=== PATIENT | female | born 1990 | race Caucasian/White ===

== ENCOUNTER 2017-09-12 09:46 | Emergency (ER) | payer OTHER ==
[~2017-09-12 09:46] MED LIST: ALBUTEROL INH; CLONAZEPAM 0.50.5 M1 PO; FLEXERIL PO; KLONOPIN0.5 MG PO; METHADONE HCL 110 M1 PO; METHADOSE10 MG PO; ULTRAM 50MG TAB50 MG PO; WELLBUTRIN SR150 MG PO
== END 2017-09-12 10:28 ==
LOC: M.ERS 09:46
DX: Z02.89 Encounter for other administrative examinations (principal)

== ENCOUNTER 2018-08-01 15:28 | Emergency (ER) | payer BC ==
[~2018-08-01] VITALS: Ht 157.5 cm; Wt 61.2 kg
[2018-08-01 16:37] LABS: URINE BLOOD 1+ (Negative); URINE CLARITY CLEAR; URINE COLOR YELLOW; URINE GLUCOSE-RANDOM NEGATIVE (Negative); URINE KETONES 1+ (Negative); URINE LEUKOCYTES-REFLEX NEGATIVE (Negative); URINE NITRITE-REFLEX NEGATIVE (Negative); URINE PROTEIN TRACE (Negative); URINE SPECIFIC GRAVITY >= 1.030 (1.005-1.030); URINE UROBILINOGEN 0.2 E.U./dl (0.2-1.0)
[2018-08-01 16:41] LABS: ICTOTEST (BILI CONFIRMATORY) Negative (Negative); URINE BILIRUBIN 1+ (Negative)
[2018-08-01 16:42] LABS: SQUAMOUS >10 Many /LPF (0-3)
[2018-08-01 16:43] LABS: BACTERIA-REFLEX >30 Many /HPF (None Seen); CASTS None Seen /LPF (None Seen); CRYSTALS None Seen /LPF (None Seen); URINE RBC 0-2 Rare /HPF (0-2); URINE WBC-REFLEX 0-5 Rare /HPF (0-5)
[2018-08-01 16:57] LABS: ABSOLUTE LYMPHOCYTES 0.7 thou/uL (0.8-5.3); ABSOLUTE MONOCYTES 0.2 thou/uL (0.0-1.2); ABSOLUTE NEUTROPHILS 3.1 thou/uL (1.6-8.1); BASOPHILS 0.8 %; HEMATOCRIT 41.7 % (37.0-47.0); HEMOGLOBIN 14.4 gm/dL (12.0-15.0); LYMPHOCYTES 17.2 %; MCH 29.3 pg (26.0-34.0); MCHC 34.5 g/dL (28.0-37.0); MCV 84.8 fL (80.0-100.0); MONOCYTES 4.9 %; MPV 8.4 fl. (7.2-11.1); NUCLEATED RBCS 0 /100WBC; PLATELET COUNT* 182 thou/uL (150-400); POLYS 77.1 %; RBC 4.92 mil/uL (4.20-5.00); RDW-CV 12.6 % (10.5-14.5); WBC 4.1 thou/uL (4.0-11.0)
[2018-08-01 17:02] LABS: CALCIUM 8.6 mg/dL (8.5-10.1); CREATININE 0.9 mg/dL (0.6-1.3); POTASSIUM 3.9 mmol/L (3.5-5.1)
[2018-08-01 17:06] LABS: ALBUMIN 3.9 g/dL (3.4-5.0); TOTAL BILIRUBIN 0.5 mg/dL (<0.1-1.0); TOTAL PROTEIN 7.2 g/dL (6.4-8.2)
[2018-08-01] MEDS ORDERED: NORCO 5-325 TA1 EACH PO (18:32)
[2018-08-01] MEDS ORDERED: ZOFRAN ODT4 MG PO (18:34)
[2018-08-01 18:41] VITALS: BP 107/71
== END 2018-08-01 18:43 | disposition home or self-care (01) ==
LOC: M.ERS 15:28
PROVIDERS: Physician Assistant
DX: R10.32 Left lower quadrant pain (principal); R10.31 Right lower quadrant pain; R19.7 Diarrhea, unspecified; R11.0 Nausea